=== PATIENT | male | born 1980 | race Caucasian/White ===

== ENCOUNTER 2020-05-11 19:36 | Inpatient (IN) | payer OTHER ==
[~2020-05-11] VITALS: Ht 182.9 cm; Wt 109.5 kg
[2020-05-11] MEDS ORDERED: ACETAMINOPHEN 325 MG TABLET PO PRN (20:30)
[2020-05-11] MEDS ORDERED: 0.9% SODIUM CHLORIDE 10 ML SYRINGE IVP PRN (22:00)
[2020-05-11 22:10] VITALS: BP 111/58
[2020-05-11] MEDS: 1: MAGNESIUM SULFATE 2 GM, MVI, ADULT NO.1 WITH VIT K 10 ML, THIAMINE 100 MG, FOLIC ACID IV SCH ×5 (22:44)
[2020-05-12] VITALS (7 sets, daily range): BP systolic 112–141; BP diastolic 54–71
[2020-05-12] MEDS: ACETAMINOPHEN 325 MG TABLET PO PRN ×3 (05:56→18:20)
[2020-05-12] MEDS ORDERED: ENOXAPARIN SODIUM 40 MG/0.4 ML PF SYRINGE SQ SCH (09:00)
[2020-05-12] MEDS ORDERED: ALPRAZolam 0.25 MG TABLET PO PRN (11:00)
[2020-05-12] MEDS ORDERED: SODIUM CHLORIDE 0.9% 1,000 ML ONE (11:33)
[2020-05-12] MEDS: HYPROMELLOSE 0.5% 15 ML OPHTHALMIC SOLUTION OU PRN ×3 (11:35→19:57)
[2020-05-12] MEDS: 1: MAGNESIUM SULFATE 2 GM, MVI, ADULT NO.1 WITH VIT K 10 ML, THIAMINE 100 MG, FOLIC ACID IV SCH ×5 (11:41)
[2020-05-12] MEDS: CIPROFLOXACIN HCL 0.3% 2.5 ML OPHTHALMIC SOLUTION OU SCH ×3 (14:14→21:46)
[2020-05-12] MEDS: PANTOPRAZOLE SODIUM 40 MG DR TABLET PO SCH (14:17)
[2020-05-12] MEDS ORDERED: ALPRAZolam 0.25 MG TABLET PO ONE (17:45)
[2020-05-12 18:45] LABS: BAND NEUTROPHILS % (MANUAL) 0 % (0-5)
[2020-05-12 18:48] LABS: HEMATOCRIT 41.8 % (41-53); MEAN CORPUSCULAR HEMOGLOBIN 28.2 pg (26.0-34.0); MEAN CORPUSCULAR HGB CONC 33.4 G/dL (31.0-37.0); MEAN CORPUSCULAR VOLUME 85 fL (80-100); PLATELET COUNT (AUTO) 208 K/uL (150-450); RED BLOOD CELL COUNT(AUTO) 4.95 MIL/uL (4.50-5.90); RED CELL DISTRIBUTION WIDTH 13.2 % (11.5-14.5)
[2020-05-12 18:58] LABS: ANION GAP 8 mmol/L (8-16); CARBON DIOXIDE 28 mmol/L (22-29); CHLORIDE 100 mmol/L (98-107); GLOMERULAR FILTR. RATE CALC > 60 mL/min (>60); GLUCOSE,RANDOM 139 mg/dL (70-110); POTASSIUM 3.5 mmol/L (3.5-5.1); SODIUM SERUM 136 mmol/L (136-145); UREA NITROGEN, BLOOD 12 mg/dL (7-18)
[2020-05-12] MEDS ORDERED: CloNIDine HCL 0.1 MG TABLET PO PRN (19:00)
[2020-05-12] MEDS ORDERED: MAG HYDROX/AL HYDROX/SIMETH ES 30 ML SUSPENSION UDCUP PO PRN (19:00)
[2020-05-12 19:04] LABS: ALANINE AMINOTRANSFERASE 36 U/L (12-78); ALBUMIN 3.7 g/dL (3.4-5.0); ALKALINE PHOSPHATASE 69 U/L (46-116); ASPARTATE AMINOTRANSFERASE 24 U/L (15-37); BILIRUBIN,TOTAL 0.8 mg/dL (0.1-1.0); TOTAL PROTEIN, SERUM 7.1 g/dL (6.4-8.2)
[2020-05-12 19:17] LABS: LYMPHOCYTES % (MANUAL) 15 % (22-44); MONOCYTES % (MANUAL) 7 % (2-9); SEGMENTED NEUTROPHILS % 78 % (40-70)
[2020-05-12] MEDS: IBUPROFEN 600 MG TABLET PO PRN (19:44)
[2020-05-12] MEDS: HydrOXYzine PAMOATE 50 MG CAPSULE PO PRN (19:57)
[2020-05-12] MEDS ORDERED: FLUO-191 PO (20:59)
[2020-05-12] MEDS: CloNIDine HCL 0.1 MG TABLET PO SCH (21:46)
[2020-05-13] VITALS (8 sets, daily range): BP systolic 102–131; BP diastolic 62–86
[2020-05-13] MEDS: 1: MAGNESIUM SULFATE 2 GM, MVI, ADULT NO.1 WITH VIT K 10 ML, THIAMINE 100 MG, FOLIC ACID IV SCH ×20 (03:39→16:17)
[2020-05-13] MEDS: CIPROFLOXACIN HCL 0.3% 2.5 ML OPHTHALMIC SOLUTION OU SCH ×3 (05:30→14:06)
[2020-05-13] MEDS: CloNIDine HCL 0.1 MG TABLET PO SCH ×4 (05:30→21:49)
[2020-05-13] MEDS: PANTOPRAZOLE SODIUM 40 MG DR TABLET PO SCH ×2 (08:39→08:47)
[2020-05-13] MEDS: IBUPROFEN 600 MG TABLET PO PRN ×2 (11:23→16:06)
[2020-05-13] MEDS ORDERED: SODIUM CHLORIDE 0.9% 1,000 ML ONE (14:01)
[2020-05-13] MEDS ORDERED: IOVERSOL 350 MG/ML 100 ML VIAL ONE (14:51)
[2020-05-13] MEDS ORDERED: SODIUM CHLORIDE 0.9% 100 ML ONE (14:51)
[2020-05-13] MEDS ORDERED: PIPERACILLIN/TAZO 3.375 GM/D5W 50 ML IV SCH (15:00)
[2020-05-13] MEDS ORDERED: VANCOMYCIN HCL 1.25 GM in DEXTROSE 5%-WATER 250 ML IV ONE (16:00)
[2020-05-13] MEDS: ALPRAZolam 0.25 MG TABLET PO PRN (17:15)
[2020-05-13] MEDS: ACETAMINOPHEN 325 MG TABLET PO PRN (17:15)
[2020-05-13] MEDS: CEFEPIME HCL 2 GM in DEXTROSE 5%-WATER 50 ML IV SCH (18:06)
[2020-05-13] MEDS: MetroNIDAZOLE 500 MG/NACL 100 ML IV SCH (18:50)
[2020-05-14] MEDS: VANCOMYCIN HCL 1.25 GM in DEXTROSE 5%-WATER 250 ML IV SCH ×3 (00:30→14:49)
[2020-05-14] MEDS: CEFEPIME HCL 2 GM in DEXTROSE 5%-WATER 50 ML IV SCH ×3 (00:41→16:48)
[2020-05-14] MEDS: MetroNIDAZOLE 500 MG/NACL 100 ML IV SCH ×3 (01:48→17:34)
[2020-05-14] MEDS: 1: MAGNESIUM SULFATE 2 GM, MVI, ADULT NO.1 WITH VIT K 10 ML, THIAMINE 100 MG, FOLIC ACID IV SCH ×10 (02:58→10:12)
[2020-05-14] MEDS: IBUPROFEN 600 MG TABLET PO PRN (06:01)
[2020-05-14] MEDS: ALPRAZolam 0.25 MG TABLET PO PRN ×2 (06:01→11:33)
[2020-05-14] MEDS: CloNIDine HCL 0.1 MG TABLET PO SCH ×3 (06:02→17:34)
[2020-05-14 06:08] VITALS: BP 126/72
[2020-05-14] MEDS: PANTOPRAZOLE SODIUM 40 MG DR TABLET PO SCH (08:00)
[2020-05-14 08:04] VITALS: BP 148/76
[2020-05-14] MEDS ORDERED: SODIUM CHLORIDE 0.9% 1,000 ML ONE (09:33)
[2020-05-14 10:09] VITALS: BP 148/76
[2020-05-14 11:39] VITALS: BP 112/65
[2020-05-14] MEDS ORDERED: DiphenhydrAMINE HCL 50 MG/ML VIAL IM ONE (13:30)
[2020-05-14] MEDS ORDERED: HALOPERIDOL LACTATE 5 MG/ML VIAL IM ONE (13:30)
[2020-05-14 16:01] VITALS: BP 124/74
[2020-05-14] MEDS ORDERED: CEFE2I IV (17:08)
[2020-05-14] MEDS ORDERED: CLON0.1T83 PO ×2 (17:09→17:15)
[2020-05-14] MEDS ORDERED: PANT-31 PO (17:10)
[2020-05-14] MEDS ORDERED: METR500 IVPB (17:10)
[2020-05-14] MEDS ORDERED: VANC250C13 IVPB (17:12)
[2020-05-14] MEDS ORDERED: ACET-66 PO (17:15)
[2020-05-14] MEDS ORDERED: HYPR15DR23 OU (17:16)
[2020-05-14] MEDS ORDERED: HYDR50CA9 PO (17:18)
[2020-05-14] MEDS ORDERED: IBUP-2070 PO (17:18)
[2020-05-14] MEDS ORDERED: MAAL30 PO (17:19)
[2020-05-14] MEDS: HYPROMELLOSE 0.5% 15 ML OPHTHALMIC SOLUTION OU PRN (17:39)
[2020-05-14] MEDS: HydrOXYzine PAMOATE 50 MG CAPSULE PO PRN (17:43)
== END 2020-05-14 19:05 | disposition short-term general hospital (02) | DRG 896 ==
LOC: EMS 19:37 → 6N 20:30
PROVIDERS: ADMIT Internal Medicine; ATTEND Internal Medicine
DX: F11.23 Opioid dependence with withdrawal (principal); G92 Toxic encephalopathy; L03.213 Periorbital cellulitis; E66.9 Obesity, unspecified; F19.10 Other psychoactive substance abuse, uncomplicated; F15.10 Other stimulant abuse, uncomplicated; Z68.32 Body mass index [BMI] 32.0-32.9, adult; H57.12 Ocular pain, left eye; F17.200 Nicotine dependence, unspecified, uncomplicated; Z20.828 Contact with and (suspected) exposure to other viral communicable diseases
CPT/HCPCS: 70487; 84145; 85007; 87070; 87205; J0692; J1200; J1630; J1650; J2543; J3370; J3411; J3475; J3490; J7030; J7050; J7060